=== PATIENT | male | born 2000 | race Caucasian/White ===

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

== ENCOUNTER → 2019-08-02 | Outpatient (CLI) | payer OTHER ==
--- NOTE | 2019-08-03 07:09 | XR ---
EXAMINATION TYPE: XR cervical spine limited DATE OF EXAM: 08/02/2019 COMPARISON: NONE HISTORY: Pain TECHNIQUE: 4 views submitted. FINDINGS: Odontoid intact. Prevertebral soft tissue structures within normal limits. Alignment anatom ic. No compression deformities. Vertebral body height and disc interspace maintained. IMPRESSION: No acute process. If symptoms persist correlate with MRI if there is concern for disc her niation.
== END | disposition home or self-care (01) ==
LOC: RADXRMAIN 19:12
PROVIDERS: ATTEND Family Medicine
DX: M99.01 Segmental and somatic dysfunction of cervical region (principal)
CPT/HCPCS: 72040

== ENCOUNTER → 2019-09-27 | Outpatient (CLI) | payer OTHER ==
--- NOTE | 2019-09-27 18:59 | MR ---
EXAMINATION TYPE: MR cervical spine wo con DATE OF EXAM: 09/27/2019 COMPARISON: None HISTORY: Headaches, Rishi pain/weakness CONTRAST: Performed utilizing 0 mL intravenous Gadavist gadolinium contrast. TECHNIQUE: Multiplanar multiecho imaging on a 3.0 [place] magnet is performed through the cervical spin e. FINDINGS: The craniovertebral junction is normal. Vertebral body alignment is normal. C7-T1: No focal disc herniation or significant disc bulge is evident. No spinal canal stenosis or n eural foraminal stenosis is present. C6-7: Minimal central bulge is present without cord contact or significant thecal sac compression. No cord deformity is evident. Mild right foraminal narrowing is present from uncovertebral joint hypert rophy.. C5-6: No focal disc herniation or significant disc bulge is evident. No spinal canal stenosis or martin ral foraminal stenosis is present. C4-5: No focal disc herniation or significant disc bulge is evident. No spinal canal stenosis or martin ral foraminal stenosis is present. C3-4: No focal disc herniation or significant disc bulge is evident. No spinal canal stenosis or martin ral foraminal stenosis is present. C2-3: Minimal protrusion is present centrally with minimal anterior thecal sac compression. No AP spi nal canal stenosis present. Neural foramen are patent. No cord contact is evident.. [place] disc hydration levels appear normal. Vertebral body heights are preserved. IMPRESSIONS: 1. Minimal central disc bulge is present C2-3 and C6-7 without cord contact or spinal canal stenosis.
== END | disposition home or self-care (01) ==
LOC: RADMRIMAIN 14:05
PROVIDERS: ATTEND Family Medicine
DX: M50.81 Other cervical disc disorders, high cervical region (principal)
CPT/HCPCS: 72141

== ENCOUNTER → 2020-05-17 | Outpatient (CLI) | payer OTHER ==
--- NOTE | 2020-05-18 07:15 | XR ---
EXAMINATION TYPE: XR ankle complete RT DATE OF EXAM: 05/17/2020 COMPARISON: NONE HISTORY: Pain and FINDINGS: Three views of the ankle demonstrate the ankle mortise to be intact and symmetric. The joint spaces are preserved. The osseous structures are intact. Tiny bony density inferior to the lateral malleol us. IMPRESSION: 1. Tiny bony density inferior to lateral malleolus too small to characterize. Correlate with point te nderness to exclude tiny avulsion fracture.
== END | disposition home or self-care (01) ==
LOC: RADXRMAIN 16:26
PROVIDERS: ATTEND Internal Medicine
DX: R93.6 Abnormal findings on diagnostic imaging of limbs (principal)

== ENCOUNTER 2020-12-11 10:55 | Emergency (ER) | payer OTHER ==
[2020-12-11 11:15] VITALS: TEMP 98
[2020-12-11] MEDS ORDERED: SODIUM CHLORIDE 0.9% 1,000 ML IV STA (11:25)
[2020-12-11] MEDS ORDERED: KETOROLAC 15 MG/ML 1 ML VIAL IVP STA (11:26)
--- NOTE | 2020-12-11 11:28 | ED ---
General Adult HPI - General Chief complaint: Dizziness Stated complaint: covid+/sob/dizzy Time Seen by Provider: 12/11/20 11:20 Source: patient, RN notes reviewed Mode of arrival: ambulatory Limitations: no limitations - History of Present Illness Initial comments: Patient is 20-year-old male presented to ED for COVID related symptoms. Patient states they test positive November 26 with COVID-19, has had increased general fatigue, weakness, cough and congestion, with dizziness since diagnosis. Patient reports episodes of nausea and vomiting, decreased appetite with increased diarrhea. Patient reports also having episodes of chills and fever. Patient states that on 12/05 express and was diagnosed with, pneumonia, sent home with steroids and antibiotics which patient is currently taking. - Related Data Previous Rx's Medication Instructions Recorded Ondansetron Odt [Zofran ODT] 4 mg PO Q8HR PRN #10 tab 04/28/18 Allergies Allergy/AdvReac Type Severity Reaction Status Date / Time No Known Allergies Allergy Verified 12/11/20 11:16 Review of Systems ROS Statement: Those systems with pertinent positive or pertinent negative responses have been documented in the HPI. ROS Other: All systems not noted in ROS Statement are negative. Past Medical History Additional Past Medical History / Comment(s): 03/10/15; FELL ON ICE AND FRACTURE LEFT LEG. History of Any Multi-Drug Resistant Organisms: None Reported Past Surgical History: Orthopedic Surgery Additional Past Surgical History / Comment(s): BONE GRAFT TO LEFT LEG (FOUND HE WAS MISSING A BONE). Past Anesthesia/Blood Transfusion Reactions: No Reported Reaction Past Psychological History: No Psychological Hx Reported Smoking Status: Former smoker Past Alcohol Use History: None Reported Past Drug Use History: None Reported - Past Family History Mother Family Medical History: No Reported History General Exam Limitations: no limitations General appearance: alert, in no apparent distress, anxious ENT exam: Present: normal exam, normal oropharynx, mucous membranes moist Neck exam: Present: normal inspection, full ROM. Absent: tenderness, meningismus, lymphadenopathy Respiratory exam: Present: normal lung sounds bilaterally. Absent: respiratory distress, wheezes, rales, rhonchi, stridor Cardiovascular Exam: Present: regular rate, normal rhythm, normal heart sounds. Absent: systolic murmur, diastolic murmur, rubs, gallop, clicks GI/Abdominal exam: Present: soft, normal bowel sounds. Absent: distended, tenderness, guarding, rebound, rigid Neurological exam: Present: alert, oriented X3 Psychiatric exam: Present: anxious Skin exam: Present: warm, dry, intact, normal color. Absent: rash Course Vital Signs 12/11/20 12/11/20 11:10 13:09 Temperature 98.0 F Pulse Rate 90 53 L Respiratory 20 18 Rate Blood Pressure 111/82 138/90 O2 Sat by Pulse 97 98 Oximetry EKG Findings - EKG Comments: EKG Findings:: EKG performed at 11:34 sinus bradycardia rate of 55 OK 170 QS 90 QT/QTC 4:30/411 Medical Decision Making - Medical Decision Making Patient came in for increased dizziness cough and congestion related to COVID- 19. Patient's labs came back all stable and within normal limits. Patient urine will be cultured because of slight increase in white count. Patient x-ray was consistent with Covid changes. Patient was counseled on symptomatic relief with Tylenol, Motrin. Return parameters were discussed. - Lab Data Result diagrams: 12/11/20 11:43 12/11/20 11:43 Lab Results 12/11/20 12/11/20 12/11/20 Range/Units 11:43 11:43 11:43 WBC 6.9 (3.8-10.6) k/uL RBC 5.10 (4.30-5.90) m/uL Hgb 14.7 (13.0-17.5) gm/dL Hct 42.3 (39.0-53.0) % MCV 82.9 (80.0-100.0) fL MCH 28.7 (25.0-35.0) pg MCHC 34.6 (31.0-37.0) g/dL RDW 12.2 (11.5-15.5) % Plt Count 419 (150-450) k/uL MPV 7.6 Neutrophils % 63 % Lymphocytes % 27 % Monocytes % 6 % Eosinophils % 2 % Basophils % 1 % Neutrophils # 4.4 (1.3-7.7) k/uL Lymphocytes # 1.9 (1.0-4.8) k/uL Monocytes # 0.4 (0-1.0) k/uL Eosinophils # 0.1 (0-0.7) k/uL Basophils # 0.1 (0-0.2) k/uL Sodium 140 (137-145) mmol/L Potassium 3.8 (3.5-5.1) mmol/L Chloride 109 H (98-107) mmol/L Carbon Dioxide 24 (22-30) mmol/L Anion Gap 7 mmol/L BUN 13 (9-20) mg/dL Creatinine 0.72 (0.66-1.25) mg/dL Est GFR (CKD-EPI)AfAm >90 (>60 ml/min/1.73 sqM) Est GFR (CKD-EPI)NonAf >90 (>60 ml/min/1.73 sqM) Glucose 101 H (74-99) mg/dL Calcium 8.8 (8.4-10.2) mg/dL Total Bilirubin 0.8 (0.2-1.3) mg/dL AST 18 (17-59) U/L ALT 27 (4-49) U/L Alkaline Phosphatase 59 (38-126) U/L Total Protein 6.4 (6.3-8.2) g/dL Albumin 3.3 L (3.5-5.0) g/dL Urine Color Yellow Urine Appearance Cloudy (Clear) Urine pH 6.5 (5.0-8.0) Ur Specific [place] 1.022 (1.001-1.035) Urine Protein Trace H (Negative) Urine Glucose (UA) Negative (Negative) Urine Ketones Negative (Negative) Urine Blood Negative (Negative) Urine Nitrite Negative (Negative) Urine Bilirubin Negative (Negative) Urine Urobilinogen 3.0 (<2.0) mg/dL Ur Leukocyte Esterase Trace H (Negative) Urine RBC 2 (0-5) /hpf Urine WBC 7 H (0-5) /hpf Ur Squamous Epith Cells 1 (0-4) /hpf Amorphous Sediment Moderate H (None) /hpf Urine Mucus Many H (None) /hpf Disposition Clinical Impression: COVID Disposition: HOME SELF-CARE Condition: Stable Instructions (If sedation given, give patient instructions): Coronavirus Disease 2019 (COVID-19) Additional Instructions: Please return to the Emergency Department if symptoms worsen or any other concerns. Is patient prescribed a controlled substance at d/c from ED?: No Referrals: Krista Reeder DO [Primary Care Provider] - 1-2 days Time of Disposition: 13:33
[2020-12-11 12:02] LABS: Basophils # (A) 0.1 k/uL (0-0.2); Basophils % (A) 1 %; Eosinophils # (A) 0.1 k/uL (0-0.7); Eosinophils % (A) 2 %; HCT 42.3 % (39.0-53.0); HGB 14.7 gm/dL (13.0-17.5); Lymphocytes # (A) 1.9 k/uL (1.0-4.8); Lymphocytes % (A) 27 %; MCH 28.7 pg (25.0-35.0); MCHC 34.6 g/dL (31.0-37.0); MCV 82.9 fL (80.0-100.0); Mean Platelet Volume 7.6; Monocytes # (A) 0.4 k/uL (0-1.0); Monocytes % (A) 6 %; Neutrophils # (A) 4.4 k/uL (1.3-7.7); Neutrophils % (A) 63 %; Platelet Count 419 k/uL (150-450); RDW 12.2 % (11.5-15.5); WBC 6.9 k/uL (3.8-10.6)
[2020-12-11 12:09] LABS: Amorphous Sediment,Urine Moderate /hpf; Appearance,Urine Cloudy (Clear); Bilirubin,Urine Negative (Negative); Blood,Urine Negative (Negative); Color,Urine Yellow; Glucose,Urine (UA) Negative (Negative); Ketones,Urine Negative (Negative); Leukocyte Esterase,Urine Trace (Negative); Mucus,Urine Many /hpf; Nitrite,Urine Negative (Negative); PH, Urine 6.5 (5.0-8.0); Protein,Urine Trace (Negative); RBC,Urine 2 /hpf (0-5); Specific Gravity,Urine 1.022 (1.001-1.035); Squamous Epithelial Cell,Urine 1 /hpf (0-4); WBC,Urine 7 /hpf (0-5)
[2020-12-11 12:15] LABS: ALT 27 U/L (4-49); AST 18 U/L (17-59); African American GFR (CKD) >90 (>60 ml/min/1.73 sqM); Albumin 3.3 g/dL (3.5-5.0); Alkaline Phosphatase 59 U/L (38-126); Anion Gap 7 mmol/L; Blood Urea Nitrogen 13 mg/dL (9-20); Calcium 8.8 mg/dL (8.4-10.2); Carbon Dioxide 24 mmol/L (22-30); Chloride 109 mmol/L (98-107); Glucose 101 mg/dL (74-99); Non-African American GFR(CKD) >90 (>60 ml/min/1.73 sqM); Potassium 3.8 mmol/L (3.5-5.1); Sodium 140 mmol/L (137-145); Total Bilirubin 0.8 mg/dL (0.2-1.3); Total Protein 6.4 g/dL (6.3-8.2)
--- NOTE | 2020-12-11 12:30 | XR ---
EXAMINATION TYPE: XR chest 2V DATE OF EXAM: 12/11/2020 COMPARISON: None HISTORY: 20-year-old male with cough TECHNIQUE: PA and lateral views FINDINGS: The cardiomediastinal silhouette, aorta, and pulmonary vasculature are within normal limits. There ar e patchy bilateral opacities especially in the periphery and lower aspect of the lungs. No pleural ef fusion or pneumothorax. IMPRESSION: Patchy bilateral COVID infiltrates especially in the periphery and lower aspects of the lungs.
[2020-12-11 13:10] VITALS: BP 138/90; PULSE 53; RESP 18
[2020-12-12 16:15] LABS: C. trachomatis,PCR Negative (Neg,Equiv); Chlamydia trachomatis Source Urine; N. gonorrhoeae,PCR Negative (Neg,Equiv); Neisseria Source Urine
== END 2020-12-11 13:51 | disposition home or self-care (01) ==
LOC: EC 10:55
DX: U07.1 COVID-19 (principal); Z87.891 Personal history of nicotine dependence
CPT/HCPCS: 36415; 93005; 80053; 85025; 81001; 87491; 87591; 87086; 71046; 99285; 96374; 96361 ×2; J1885

== ENCOUNTER → 2022-05-22 | Outpatient (CLI) | payer OTHER ==
--- NOTE | 2022-05-22 12:32 | XR ---
EXAMINATION TYPE: XR ankle limited LT DATE OF EXAM: 05/22/2022 11:58 AM INDICATION: Patient age:Male; 22 years old; Reason for study: M25.572; COMPARISON: 03/20/2015 TECHNIQUE: The left ankle is imaged in frontal, lateral and oblique projections. FINDINGS: Post fixation changes to the fibula with hardware and screws in appropriate position. No ne w fractures. Hardware is intact. The joint spaces are well-preserved without evidence of subluxation or dislocation. [place]'s fat pad is intact. IMPRESSION: 1. No evidence of acute fracture. 2. Post fixation changes with hardware in appropriate position and intact.
== END | disposition home or self-care (01) ==
LOC: RADXRMAIN 11:41
PROVIDERS: ATTEND Internal Medicine
DX: M25.572 Pain in left ankle and joints of left foot (principal); Z98.890 Other specified postprocedural states

== ENCOUNTER 2024-03-26 11:02 | Emergency (ER) | payer OTHER ==
[2024-03-26 11:09] VITALS: RESP 18
[2024-03-26] MEDS: ACETAMINOPHEN TAB 325 MG TAB PO STA (11:24)
--- NOTE | 2024-03-26 11:39 | XR ---
EXAMINATION TYPE: XR tibia fibula RT DATE OF EXAM: 03/26/2024 11:36 AM INDICATION: Patient age:Male; 24 years old; Reason for study: fall, ecchymosis; PHH. pain COMPARISON: None TECHNIQUE: The right tibia/fibula was examined in AP and lateral projections. FINDINGS: No evidence of any acute osseous pathology, joint dislocation, or soft tissue swelling is n oted. No radiopaque foreign body. IMPRESSION: No evidence of acute fracture. [facility], , 03/26/2024 11:37 AM
--- NOTE | 2024-03-26 11:51 | ED ---
Lower Extremity Injury HPI - General Chief Complaint: Extremity Injury, Lower Stated Complaint: [facility] leg injury Time Seen by Provider: 03/26/24 11:11 Source: patient Mode of arrival: ambulatory Limitations: no limitations - History of Present Illness Initial Comments: 24-year-old male in the stomach medical history presenting to the emergency department after work-related incident. 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 He denies hitting his head or loss conscious at time the injury. Denies related to the time of the fall. Does not take any medications since the event. No other acute complaints at this time. - Related Data Home Medications Medication Instructions Recorded Confirmed predniSONE [Deltasone] 40 mg PO DAILY 12/11/20 12/11/20 Allergies Allergy/AdvReac Type Severity Reaction Status Date / Time No Known Allergies Allergy Verified 03/26/24 11:09 Review of Systems ROS Statement: Those systems with pertinent positive or pertinent negative responses have been documented in the HPI. ROS Other: All systems not noted in ROS Statement are negative. Past Medical History Additional Past Medical History / Comment(s): 03/10/15; FELL ON ICE AND FRACTURE LEFT LEG. History of Any Multi-Drug Resistant Organisms: None Reported Past Surgical History: Orthopedic Surgery Additional Past Surgical History / Comment(s): BONE GRAFT TO LEFT LEG (FOUND HE WAS MISSING A BONE). Dental surgery Past Anesthesia/Blood Transfusion Reactions: No Reported Reaction Past Psychological History: Anxiety, Depression Smoking Status: Vaper Past Alcohol Use History: Occasional Past Drug Use History: None Reported - Past Family History Mother Family Medical History: No Reported History General Exam Limitations: no limitations General appearance: alert, in no apparent distress ENT exam: Present: normal exam, mucous membranes moist Respiratory exam: Present: normal lung sounds bilaterally. Absent: respiratory distress, wheezes, rales, rhonchi, stridor Cardiovascular Exam: Present: regular rate, normal rhythm, normal heart sounds. Absent: systolic murmur, diastolic murmur, rubs, gallop, clicks GI/Abdominal exam: Present: soft, normal bowel sounds. Absent: distended, tenderness, guarding, rebound, rigid Right Lower Leg exam: Present: full ROM, tenderness, swelling, abrasion. Absent: laceration, deformity, crepitus Gait: observed and normal Back exam: Present: normal inspection Course Vital Signs 03/26/24 11:05 Temperature 98.5 F Pulse Rate 93 Respiratory 18 Rate Blood Pressure 155/113 O2 Sat by Pulse 98 Oximetry Medical Decision Making - Medical Decision Making Was pt. sent in by a medical professional or institution (, [facility], MARINE ENGINE MACHINIST APPRENTICE, urgent care, hospital, or usp...) When possible be specific @ -No Did you speak to anyone other than the patient for history (EMS, parent, family, police, friend...)? What history was obtained from this source @ -No Did you review nursing and triage notes (agree or disagree)? Why? @ -I reviewed and agree with nursing and triage notes Were old charts reviewed (outside hosp., previous admission, EMS record, old EKG, old radiological studies, urgent care reports/EKG's, usp records)? Report findings @ -No old charts were reviewed Differential Diagnosis (chest pain, altered mental status, abdominal pain women, abdominal pain men, vaginal bleeding, weakness, fever, dyspnea, syncope, headache, dizziness, GI bleed, back pain, seizure, CVA, palpatations, mental health, musculoskeletal)? @ -Differential Musculoskeletal Muscular strain, contusion, ligament sprain, fracture, arthritis, septic arthritis, bursitis, cellulitis, muscle spasm, nerve compression, DVT, arterial occlusion, herpes zoster, electrolyte abnormality, tumor.... This is not meant to be in all inclusive list EKG interpreted by me (3pts min.). @ -None X-rays interpreted by me (1pt min.). @ -X-ray of the tibia and female the right leg no acute fracture CT interpreted by me (1pt min.). @ -None done U/S interpreted by me (1pt. min.). @ -None done What testing was considered but not performed or refused? (CT, X-rays, U/S, labs)? Why? @ -None What meds were considered but not given or refused? Why? @ -None Did you discuss the management of the patient with other professionals (professionals i.e. [facility] [place], MARINE ENGINE MACHINIST APPRENTICE, lab, RT, psych nurse, manager social responsibility, civil lawyer, teacher, classifications officer cc/cm, case aide)? Give summary @ -No Was smoking cessation discussed for >3mins.? @ -No Was critical care preformed (if so, how long)? @ -No Were there social determinants of health that impacted care today? How? (Homelessness, low income, unemployed, alcoholism, drug addiction, transportation, low edu. Level, literacy, decrease access to med. care, prison, rehab)? @ -No Was there de-escalation of care discussed even if they declined (Discuss DNR or withdrawal of care, Hospice)? DNR status @ -No What co-morbidities impacted this encounter? (DM, HTN, Smoking, COPD, CAD, Cancer, CVA, ARF, Chemo, Hep., AIDS, mental health diagnosis, sleep apnea, morbid obesity)? @ -None Was patient admitted / discharged? Hospital course, mention meds given and route, prescriptions, significant lab abnormalities, going to OR and other pertinent info. @ -Discharge. 24-year-old male presenting after work-related accident. Patient noted to have a roughly 3 inch abrasion over the anterior right castro with bleeding controlled. He is provided with dose of Tylenol. X-rays are negative. Supportive treatment discussed. Case discussed with Dr. Condon Undiagnosed new problem with uncertain prognosis? @ -No Drug Therapy requiring intensive monitoring for toxicity (Heparin, Nitro, Insulin, Cardizem)? @ -No Were any procedures done? @ -No Diagnosis/symptom? @ -Leg abrasion, leg contusion, Acute, or Chronic, or Acute on Chronic? @ -Acute Uncomplicated (without systemic symptoms) or Complicated (systemic symptoms)? @ -Uncomplicated Side effects of treatment? @ -No Exacerbation, Progression, or Severe Exacerbation? @ -No Poses a threat to life or bodily function? How? (Chest pain, [place], [place], pneumonia, PE, COPD, DKA, ARF, appy, cholecystitis, CVA, Diverticulitis, Homicidal, Suicidal, threat to staff... and all critical care pts) @ -No Disposition Clinical Impression: Abrasion of right lower extremity Disposition: HOME SELF-CARE Condition: Good Instructions (If sedation given, give patient instructions): Contusion in Adults (ED) Additional Instructions: Please return to the Emergency Department if symptoms worsen or any other concerns. Is patient prescribed a controlled substance at d/c from ED?: No Referrals: None,Stated [Primary Care Provider] - 1-2 days Time of Disposition: 11:58
[2024-03-26 12:34] VITALS: BP 146/90; PULSE 86; TEMP 98.2
== END 2024-03-26 12:33 | disposition home or self-care (01) ==
LOC: EC 11:02
DX: S80.811A Abrasion, right lower leg, initial encounter (principal); F17.290 Nicotine dependence, other tobacco product, uncomplicated; W18.49XA Other slipping, tripping and stumbling without falling, initial encounter
CPT/HCPCS: 99283